=== PATIENT | female | born 1935 | race Caucasian/White ===

== ENCOUNTER 2016-05-28 18:00 | Emergency (ER) | payer MEDICARE, OTHER ==
[~2016-05-28] VITALS: Ht 167.6 cm; Wt 54.4 kg
[~2016-05-28 18:00] MED LIST: FERR1TAB44 PO; OREG1500 PO; [UNRECOGNIZED DRUG - OTHER] PO
[2016-05-28 18:34] VITALS: BP 126/81
[2016-05-31] MEDS ORDERED: IV SET PRIMARY PUMP SET 1 EA INFUS.SET MC ONE (11:29)
== END 2016-05-28 18:39 | disposition home or self-care (01) ==
LOC: ER 18:05
DX: Z53.21 Procedure and treatment not carried out due to patient leaving prior to being seen by health care provider (principal)
CPT/HCPCS: A4606; Z7610